=== PATIENT | female | born 1980 | race Caucasian/White ===

== ENCOUNTER 2017-07-30 11:54 | Emergency (ER) | payer BC, OTHER ==
[~2017-07-30] VITALS: Ht 165.1 cm; Wt 65.8 kg
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
[2017-07-30] MEDS ORDERED: KETOROLAC TROMETHAMINE INJ 30 MG/ML VIAL ONE (12:15)
[2017-07-30] MEDS ORDERED: diphenhydrAMINE HCL 50 MG/ML VIAL ONE (12:15)
[2017-07-30] MEDS ORDERED: METOCLOPRAMIDE HCL 10 MG/2 ML VIAL ONE (12:16)
--- NOTE | 2017-07-30 12:20 | NUR ---
NEW IV STARTED ON LAC, 20G.
--- NOTE | 2017-07-30 12:25 | NUR ---
PATIENT MEDICATED PER MD ORDERS.
[2017-07-30] MEDS ORDERED: KETOROLAC TROMETHAMINE INJ 30 MG/ML VIAL IV ONE (12:30)
[2017-07-30] MEDS ORDERED: diphenhydrAMINE HCL 50 MG/ML VIAL IV ONE (12:30)
[2017-07-30] MEDS ORDERED: IV NS 0.9% 250 ML BAG IV ONE (12:30)
[2017-07-30] MEDS ORDERED: METOCLOPRAMIDE HCL 10 MG/2 ML VIAL IV ONE (12:30)
[2017-07-30 13:30] VITALS: BP 108/61
--- NOTE | 2017-07-30 13:36 | NUR ---
IV removed. Catheter intact and site benign. Pressure and 4x4 applied to site. No bleeding noted. Patient discharged to home in stable condition. Written and verbal after care instructions given. Patient verbalizes understanding of instruction.
== END 2017-07-30 13:35 | disposition home or self-care (01) ==
LOC: ER 11:56
DX: R51 Headache (principal); E03.9 Hypothyroidism, unspecified; J32.9 Chronic sinusitis, unspecified
CPT/HCPCS: A4606; J1200; J1885; J2765; J7050; Z7610

== ENCOUNTER 2021-05-20 08:32 | Emergency (ER) | payer BC ==
[~2021-05-20] VITALS: Ht 162.6 cm; Wt 72.6 kg
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
[2021-05-20] MEDS ORDERED: ACETAMINOPHEN ES 500 MG TABLET ONE (09:00)
[2021-05-20] MEDS ORDERED: ACETAMINOPHEN ES 500 MG TABLET PO ONE (09:00)
[2021-05-20] MEDS ORDERED: IBUPROFEN 600 MG TABLET PO ONE (09:00)
[2021-05-20] MEDS ORDERED: IBUPROFEN 600 MG TABLET ONE (09:01)
[2021-05-20] MEDS ORDERED: IBUP-1957 PO (10:15)
[2021-05-20 10:25] VITALS: BP 118/67
--- NOTE | 2021-05-20 10:25 | NUR ---
Patient discharged to home in stable condition. Written and verbal after care instructions given. Patient verbalizes understanding of instruction.
== END 2021-05-20 10:26 | disposition home or self-care (01) ==
LOC: ER 08:35
DX: S39.012A Strain of muscle, fascia and tendon of lower back, initial encounter (principal); S00.33XA Contusion of nose, initial encounter; S00.03XA Contusion of scalp, initial encounter; V49.9XXA Car occupant (driver) (passenger) injured in unspecified traffic accident, initial encounter; Y93.89 Activity, other specified; Y92.89 Other specified places as the place of occurrence of the external cause; Y99.8 Other external cause status
CPT/HCPCS: 70450-TC; 70486-TC; 72125-TC; 72131-TC